=== PATIENT | female | born 1955 | race Caucasian/White ===

== ENCOUNTER 2019-05-10 18:11 | Emergency (ER) | payer BC ==
[2019-05-10 18:20] VITALS: BP 138/65; PULSE 88
[2019-05-10] MEDS ORDERED: Sodium Chloride 0.9% 10 ML Syringe FLUSH PRN (18:24)
[2019-05-10] MEDS ORDERED: Ondansetron 4 MG/2 ML SDV IV ONE (18:24)
[2019-05-10] MEDS ORDERED: HYDROmorphone 1 MG/ML Syringe IVPUSH ONE ×2 (18:24→18:53)
--- NOTE | 2019-05-10 18:48 | EDM.PDOC ---
Scribed by Latricia Montes 05/10/19 [id number] for Hellen Mike MD ED HPI GENERAL MEDICAL PROBLEM - General Chief Complaint: Lower Extremity Injury/Pain Stated Complaint: AMBULANCE Time Seen by Provider: 05/10/19 18:11 Source of Information: Reports: Patient, EMS, EMS Notes Reviewed, RN Notes Reviewed History Limitations: Reports: No Limitations - History of Present Illness INITIAL COMMENTS - FREE TEXT/NARRATIVE: Patient presents to the ER by [facility] stating that she tripped and fell on concrete while carrying her laundry. She injured her right hip. Pt states she cannot move the right hip, and cannot bear wt on the Rt leg. She denies head injury or neck pain. Denies any other injuries. Onset: Today, Sudden Duration: Constant Location: Reports: Lower Extremity, Right Quality: Reports: Ache Severity: Severe Improves with: Reports: Immobilization Worsens with: Reports: Movement Associated Symptoms: Reports: No Other Symptoms Right Upper Leg Pain Score (Numeric/FACES): 10 - Related Data Allergies Allergy/AdvReac Type Severity Reaction Status Date / Time Sulfa (Sulfonamide Allergy Swelling Verified 05/10/19 18:17 Antibiotics) Home Meds: Home Meds Acetaminophen [Tylenol] 325 mg PO PRN 03/16/14 [History] Aspirin [Adult Low Dose Aspirin EC] 81 mg PO DAILY 03/16/14 [History] Calcium Carbonate/Vitamin D3 [Calcium-Vitamin D] 1 tab PO DAILY 03/16/14 [ History] Cholecalciferol (Vitamin D3) [Vitamin D3] 1,000 units PO DAILY 03/16/14 [History ] Levothyroxine 150 mcg PO DAILY 03/16/14 [History] Loratadine [Claritin] 10 mg PO DAILY PRN 03/16/14 [History] Multivitamin [Multi Vitamin Daily] 1 tab PO DAILY 03/16/14 [History] Naproxen Sodium 220 mg PO PRN 03/16/14 [History] Omeprazole [priLOSEC OTC] 20 mg PO DAILY 03/16/14 [History] Raloxifene [Evista] 60 mg PO DAILY 03/16/14 [History] Simvastatin [Zocor] 20 mg PO BEDTIME 03/16/14 [History] Past Medical History HEENT History: Reports: Impaired Vision Gastrointestinal History: Reports: GERD Musculoskeletal History: Reports: Fracture (Fingers) Endocrine/Metabolic History: Reports: Hypothyroidism Social & Family History - Family History Family Medical History: Noncontributory - Living Situation & Occupation Living situation: Reports: Occupation: Employed Review of Systems - Review of Systems Review Of Systems: ROS reveals no pertinent complaints other than HPI. ED EXAM, GENERAL - Physical Exam Exam: See Below Exam Limited By: No Limitations General Appearance: Alert, WD/WN, No Apparent Distress Throat/Mouth: Normal Voice, No Airway Compromise Head: Atraumatic, Normocephalic Neck: Normal Inspection, Supple, Non-Tender, Full Range of Motion Respiratory/Chest: No Respiratory Distress, Lungs Clear, Normal Breath Sounds, No Accessory Muscle Use, Chest Non-Tender Cardiovascular: Normal Peripheral Pulses, Regular Rate, Rhythm GI/Abdominal: Normal Bowel Sounds, Soft, Non-Tender, No Organomegaly, No Distention, No Abnormal Bruit, No Mass Back Exam: Normal Inspection. No: CVA Tenderness (L), CVA Tenderness (R), Paraspinal Tenderness, Vertebral Tenderness Extremities: No Pedal Edema, Normal Capillary Refill, Leg Pain (Rt hip tender, bruised, unable to attempt ROM due to pain. Pelvis stable.) Neurological: Alert, Oriented, CN II-XII Intact, Normal Cognition, Normal Gait, Normal Reflexes, No Motor/Sensory Deficits Psychiatric: Normal Affect, Normal Mood Skin Exam: Warm, Dry, Intact Course - Vital Signs Last Recorded V/S: Last Vital Signs Temp 97.8 F 05/10/19 18:19 Pulse 88 05/10/19 18:19 Resp 18 05/10/19 18:19 BP 138/65 05/10/19 18:19 Pulse Ox 100 05/10/19 18:19 - Orders/Labs/Meds Orders: Active Orders 24 hr Category Date Time Status Peripheral IV Care [RC] . DIRECTED Care 05/10/19 18:24 Active Pelvis wo Cont [CT] Stat Exams 05/10/19 18:26 Taken Sodium Chloride 0.9% [Saline Flush] Med 05/10/19 18:24 Active 10 ml FLUSH ASDIRECTED PRN Peripheral IV Insertion Adult [OM.PC] Stat Oth 05/10/19 18:24 Ordered Medication Orders Sodium Chloride (Saline Flush) 10 ml FLUSH ASDIRECTED PRN PRN Reason: Keep Vein Open Last Admin: 05/10/19 18:33 Dose: 10 ml Meds: Medications Generic Name Dose Route Start Last Admin Trade Name Freq PRN Reason Stop Dose Admin Sodium Chloride 10 ml 05/10/19 18:24 05/10/19 18:33 Saline Flush FLUSH 10 ml ASDIRECTED PRN Administration Keep Vein Open Discontinued Medications Generic Name Dose Route Start Last Admin Trade Name Freq PRN Reason Stop Dose Admin Hydromorphone HCl 1 mg 05/10/19 18:24 05/10/19 18:32 Dilaudid IVPUSH 05/10/19 18:25 1 mg ONETIME ONE Administration Hydromorphone HCl 1 mg 05/10/19 18:53 05/10/19 18:58 Dilaudid IVPUSH 05/10/19 18:54 1 mg ONETIME ONE Administration Ondansetron HCl 4 mg 05/10/19 18:24 05/10/19 18:32 Zofran IV 05/10/19 18:25 4 mg ONETIME ONE Administration - Radiology Interpretation Free Text/Narrative:: [facility] Final Radiology Report Call: [phone] assistance Online chat: [email or web address] Name: RONNI GILLESPIE Age: 64Years F Date: 05/10/2019 SSN: -- : [id number] Study: CT PELVIS WO Requesting Physician: HELLEN MIKE Images: [id number] Addl Studies: Provided Clinical History: Contrast: Without Contrast Medium: Contrast Amount: Contrast Method: CONFIDENTIALITY STATEMENT This report is intended only for use by the referring physician, and only in accordance with law. If you received this in error, call [phone]. Page 1 of 1 PROCEDURE INFORMATION: Exam: CT Pelvis Without Contrast; Skeletal Exam date and time: 05/10/2019 6:30 PM Clinical history: 64 years old, female; Injury or trauma; Fall; Initial encounter; Blunt trauma (contusions or hematomas); Right; Hip TECHNIQUE: Imaging protocol: Computed tomography images of the pelvis without contrast. Exam focused on the skeletal structures. Radiation optimization: All CT scans at this facility use at least one of these dose optimization techniques: automated exposure control; mA and/or kV adjustment per patient size (includes targeted exams where dose is matched to clinical indication); or iterative reconstruction. COMPARISON: No relevant prior studies available. FINDINGS: Bones/joints: There is slightly comminuted and impacted right femoral neck fracture. No other acute fractures. Soft tissues: Unremarkable. IMPRESSION: Right femoral neck fracture Thank you for allowing us to participate in the care of your patient. Dictated and Authenticated by: Valdemar Slaughter MD 05/10/2019 7:00 PM Central Time (US & To) Departure - Departure Time of Disposition: 19:07 Disposition: DC/Tfer to [facility] 02 Condition: Fair Clinical Impression: Fracture of femoral neck, right, closed Qualifiers: Encounter type: initial encounter Qualified Code(s): S72.001A - Fracture of unspecified part of neck of right femur, initial encounter for closed fracture - Discharge Information *PRESCRIPTION DRUG MONITORING PROGRAM REVIEWED*: No *COPY OF PRESCRIPTION DRUG MONITORING REPORT IN PATIENT ALLEN: No Forms: ED Department Discharge, Interfacility Transfer EMTALA - My Orders Last 24 Hours: My Active Orders 05/10/19 18:24 Peripheral IV Care [RC] . DIRECTED Sodium Chloride 0.9% [Saline Flush] 10 ml FLUSH ASDIRECTED PRN Peripheral IV Insertion Adult [OM.PC] Stat 05/10/19 18:26 Pelvis wo Cont [CT] Stat - Assessment/Plan Last 24 Hours: My Active Orders 05/10/19 18:24 Peripheral IV Care [RC] . DIRECTED Sodium Chloride 0.9% [Saline Flush] 10 ml FLUSH ASDIRECTED PRN Peripheral IV Insertion Adult [OM.PC] Stat 05/10/19 18:26 Pelvis wo Cont [CT] Stat I have read and agree with the documentation that has been completed regarding this visit. By signing this record, I attest that the documentation was completed in my physical presence and is an accurate record of the encounter.
[2019-05-10] MEDS ORDERED: fentaNYL 100 MCG/2 ML SDV IVPUSH ONE (19:36)
[2019-05-10] MEDS ORDERED: Sodium Chloride 0.9% 1,000 ML IV ONE (19:37)
== END 2019-05-10 19:55 ==
LOC: DL.ED 18:11
DX: S72.001A Fracture of unspecified part of neck of right femur, initial encounter for closed fracture (principal); E03.9 Hypothyroidism, unspecified; K21.9 Gastro-esophageal reflux disease without esophagitis; Z88.2 Allergy status to sulfonamides; Z79.82 Long term (current) use of aspirin; Z79.899 Other long term (current) drug therapy; W01.0XXA Fall on same level from slipping, tripping and stumbling without subsequent striking against object, initial encounter; Y93.89 Activity, other specified
CPT/HCPCS: 72192; 96374; 96375; 99285; J1170; J2405; J3010; J7030

== ENCOUNTER 2021-07-05 06:55 | Day surgery (SDC) | payer BC ==
[~2021-07-05 06:55] MED LIST: Midazolam 1 MG/ML 2 ML SDV ONE; fentaNYL 100 MCG/2 ML SDV ONE
[2021-07-05] MEDS ORDERED: Midazolam 1 MG/ML 2 ML SDV IV ONE ×5 (06:56→08:44)
[2021-07-05] MEDS ORDERED: fentaNYL 100 MCG/2 ML SDV IV ONE ×3 (06:56→08:31)
[2021-07-05] MEDS ORDERED: Dextrose 5%-0.45% NaCl 1,000 ML IV SCH (07:30)
--- NOTE | 2021-07-05 09:31 | OR ---
DATE: 07/05/2021 PROCEDURE: Total colonoscopy. INSTRUMENT USED: PCF-H190DL Olympus video colonoscope. PREMEDICATIONS: Fentanyl 100 mcg intravenous, Versed 3 mg intravenous. Nasal O2 cannula. The procedure was done under pulse oximetry, BP recording, and library monitor. INDICATION: The patient with positive FIT. Colonoscopic examination is done for detection of any polypoid lesions and removal, endoscopic hemostasis therapy if needed. DESCRIPTION OF PROCEDURE: Initial rectal exam showed external hemorrhoidal tags. Rigid anoscopy was normal. The colonoscope was passed with ease to the ileocecal area. Photographs were taken of the normal-appearing cecum identified by landmarks of appendiceal orifice and double-bulged ileocecal folds. No bleeding was noted from any of the visualized areas at the commencement of the examination. The bowel preparation was found to be adequate, Concord scale 2 in right and left colon, 3 in transverse colon, total score 7. No stricture. No vascular ectasia. No large isolated ulcerations seen. No evidence of diffuse inflammatory bowel disease in the form of friability, contact bleeding, or ulcerations. No polyp or tumor mass identified. Probing the proximal sides of folds and flexures using adequate distention and clearing up the stool material, withdrawal of the scope was made, cecum to rectum time over 9 minutes. No bleeding was noted from any of the visualized areas at the completion of examination. IMPRESSION: External hemorrhoids. The patient tolerated the procedure well. [facility] /[id number]
[2021-07-05 12:59] VITALS: BP 114/55; PULSE 49
== END 2021-07-05 10:57 | disposition home or self-care (01) ==
LOC: DL.ENDO 06:55
PROVIDERS: ATTEND Internal Medicine Gastroenterology
DX: R19.5 Other fecal abnormalities (principal); K64.4 Residual hemorrhoidal skin tags; E03.9 Hypothyroidism, unspecified; E78.5 Hyperlipidemia, unspecified; F41.1 Generalized anxiety disorder; M81.0 Age-related osteoporosis without current pathological fracture; N18.9 Chronic kidney disease, unspecified; Z98.890 Other specified postprocedural states; Z88.2 Allergy status to sulfonamides; Z01.812 Encounter for preprocedural laboratory examination; Z20.822 Contact with and (suspected) exposure to COVID-19
CPT/HCPCS: 45378; 87635; J2250; J3010; J7042; U0002